=== PATIENT | male | born 1965 | race Caucasian/White ===

== ENCOUNTER 2017-05-17 12:58 | Emergency (ER) | payer BC ==
--- NOTE | 2017-05-17 13:31 | ERNOTE ---
Dizziness ER Record Date of Service: 05/17/17 Presenting Symptoms: dizziness Time Seen by Provider: 05/17/17 13:14 Source: patient, RN notes reviewed Exam Limitations: no limitations Immunizations: IMMUNIZATION HX Immunizations Up to Date No History of Influenza Vaccine No Hx Pneumococcal Vaccination No Allergies/Adverse Reactions: Allergies Allergy/AdvReac Type Severity Reaction Status Date / Time No Known Allergies Allergy Unverified 05/17/17 13:04 Home Medications: HOME MEDICATIONS NK [No Home Medication] 05/17/17 [Last Taken Unknown] - History of Present Illness Narrative: 52 y/o male ambulatory to the ED for dizziness, shakiness, and diaphoresis that began after he had a tooth extracted under local anesthesia yesterday. He denies any pain. He does not routinely see a primary care provider. Date (Duration): 05/16/17 Sense of movement: Present: vague Decreased ability to stand/walk:: Present: walks w/o assistance Usually:: Present: walks w/o assistance Modifying Factors - (Improves): Reports: nothing Modifying Factors - (Worsens): Reports: nothing Prior Treament: Denies: recently seen, currently on antibiotics Review of Systems - Review of Systems Constitutional: Present: diaphoresis, fatigue, malaise. Absent: recent illness , fever, chills EYE: Absent: eye pain, blurred vision ENT: Absent: ear pain, nose congestion, sore throat Respiratory: Absent: shortness of breath, cough Cardiology: Absent: chest pain, syncope Gastrointestinal/Abdominal: Absent: nausea, vomiting, diarrhea, abdominal pain Genitourinary: Present: no symptoms reported Musculoskeletal: Absent: muscle pain, joint pain Skin: Absent: rash, lesions, lumps Neurological: Present: dizziness/light-headedness. Absent: headache, weakness, numbness, tingling Endocrine: Present: no symptoms reported Hematologic/Lymphatic: Present: no symptoms reported Psych: Present: no symptoms reported - Patient's Past Medical History Patient History - Medical: Chronic Pain, Obesity Patient History - Cardiac/Respiratory: No pertinent hx Patient History - Cancer: No Hx of Cancer Patient History - Surgical Procedures: Noncontributory Patient History - Other: None - Social History Living Situations: home Abuse History: No History of abuse Psych History: No pertinent hx Smoking Status: Current every day smoker Cigarettes Packs Per Day: 1 Have you smoked in the past 12 months: Yes Do you dip or chew tobacco: No Alcohol Use: none Drug Use: none - Immunizations Immunizations Up to Date: No Hx Pneumococcal Vaccination: No History of Influenza Vaccine: No Physical Exam - Physical Exam General Appearance: Present: wd/wn, alert, no apparent distress, obese Eye Exam: Normal inspection: bilateral, PERRL: bilateral Ears, Nose, Throat: Present: normal ENT inspection Neck: Present: normal inspection, nontender, supple, full range of motion Respiratory: Present: no respiratory distress, normal breath sounds, no accessory muscle use, lungs clear Cardiovascular/Chest: Present: regular rate, rhythm, no murmur Extremity Exam: Present: normal inspection, normal range of motion, pedal edema - mild bilateral Neurological Exam: Present: alert, oriented, normal mood/affect, no motor/ sensory deficits Skin Exam: Present: normal color, warm/dry ED Progress - Results and Orders Patient's Lab Results:: I have reviewed the patient's lab results. - Vital Signs Patient's Vital Signs:: I have reviewed the patient's vital signs. Vital Signs: Vital Signs 05/17/17 13:04 Temperature 36.7 C Pulse Rate 93 Respiratory 16 Rate Blood Pressure 182/88 O2 Sat by Pulse 97 Oximetry - Progress/Reassessment Chief Complaint: Dizziness Progress:: Unchanged Departure Clinical Impression: Malaise and fatigue - Departure Disposition: Home Follow Up Needed Condition: Stable Instructions: Fatigue, Form - Excuse from Work, School, or Physical Activity Additional Instructions: Rest Return or follow up with your doctor if no improvement by Saturday
[2017-05-17 13:40] LABS: Hematocrit 43.8 % (42.0-52.0); Hemoglobin 14.3 gm/dL (13.5-18.0); Mean Corpuscular Hgb Conc 32.6 g/dl (32-36); Mean Platelet Volume 10.1 fl (6.0-9.5); Neutrophil # 6.5 K/mm3 (1.3-6.0); Neutrophil % 68.5 % (42-75.0); Platelet Count 243 K/mm3 (150-450); Red Blood Count 4.76 M/mm3 (4.7-6.0); Red Cell Distribution Width 13.6 % (11.5-14.0); White Blood Count 9.6 K/mm3 (4.0-10.5)
[2017-05-17 14:07] LABS: Urine Appearance Clear; Urine Bilirubin Negative (NEGATIVE); Urine Blood Negative /ul (NEGATIVE); Urine Color Dark Yellow; Urine Ketone 5 mg/dL (NEGATIVE); Urine Protein Negative (NEGATIVE)
[2017-05-17 14:08] LABS: Urine Bacteria None Seen; Urine Nitrite Negative (NEGATIVE); Urine RBC None Seen /hpf (0-5); Urine Urobilinogen Normal (NORMAL); Urine WBC 0-5 /hpf (0-5)
[2017-05-17 14:38] LABS: Anion Gap 11.1 mmol/L (6.8-13.8); BUN/Creatinine Ratio 7.4 (9.0-21.6); Bilirubin, Total 0.3 mg/dL (0.0-1.1); Ca. Corrected For Albumin 9.4 mg/dL (8.4-10.2); Calcium * 8.9 mg/dL (7.9-10.9); Carbon Dioxide 30.1 mmol/L (24-32.6); Potassium 4.2 mmol/L (3.4-4.6); T4 Free * 0.96 ng/dL (0.76-1.46); TSH * 3.043 uIU/mL (0.358-3.74); Total Protein 6.9 gm/dL (6.2-8.2)
[2017-05-17 14:56] VITALS: BP 138/76
== END 2017-05-17 14:58 | disposition home or self-care (01) ==
LOC: ER 12:58
DX: R53.81 Other malaise (principal); R53.83 Other fatigue; Z72.0 Tobacco use